=== PATIENT | male | born 1980 | race Two or more races ===

== ENCOUNTER 2019-04-25 12:51 | Emergency (ER) | payer SELFPAY ==
[2019-04-25] MEDS ORDERED: Ketorolac *IM* INJ* 60 MG/2 ML VIAL IM ONE (14:21)
--- NOTE | 2019-04-25 14:27 | ED ---
Complex/Multi-Sys Presentation - HPI Summary HPI Summary: This patient is a 38 year old M presenting to [facility] accompanied by a female fly frame tender with a chief complaint of tooth pain since last night. Pt states he lost his tooth filling 2 nights ago. He took extra strength Tylenol with no relief. He last saw a dentist 4 years ago in [place]. The patient rates the pain 10/10 in severity. Symptoms aggravated by nothing. Symptoms alleviated by nothing. Patient reports ear pain. Patient denies fever, chills, nausea, vomiting. Medications reviewed. Allergies noted. Pt does not have any medical history or previous surgeries. Pt smokes and drinks alcohol, but does not use drugs. - History Of Current Complaint Chief Complaint: EDDentalPain Time Seen by Provider: 04/25/19 14:02 Hx Obtained From: Patient, Other: - female fly frame tender Onset/Duration: Sudden Onset, Lasting Days - 1, Still Present Timing: Constant, Days - 1 Severity Currently: Severe Severity Initially: Severe Aggravating Factor(s): nothing Alleviating Factor(s): nothing Associated Signs And Symptoms: Positive: Other - positive - tooth pain, ear pain. negative - chills. Negative: Nausea, Vomiting, Fever - Allergies/Home Medications Allergies/Adverse Reactions: Allergies Allergy/AdvReac Type Severity Reaction Status Date / Time No Known Allergies Allergy Verified 04/25/19 12:54 PMH/Surg Hx/FS Hx/Imm Hx Previously Healthy: No Cardiovascular History: Denies: Hx Hypertension Sensory History: Denies: Hx Cataracts, Hx Vision Problem, Hx Deafness EENT History: Denies: Hx Deafness, Hx Auditory Problems - Surgical History Surgical History: None Infectious Disease History: No Infectious Disease History: Denies: Traveled Outside the [place] in Last 30 Days - Family History Known Family History: Positive: None - Social History Alcohol Use: Daily Alcohol Amount: 2 beers Substance Use Type: Reports: None Smoking Status (MU): Heavy Every Day Tobacco Smoker Review of Systems Negative: Fever, Chills Negative: Vomiting, Nausea Musculoskeletal: Other - positive - tooth pain, ear pain All Other Systems Reviewed And Are Negative: Yes Physical Exam - Summary Physical Exam Summary: Constitutional: Well-developed, Well-nourished, Alert. (-) Distressed Skin: Warm, Dry HENT: Normocephalic; Atraumatic. Tooth 2 tender to palpation, no fluctuance, induraton, or swelling. Eyes: Conjunctiva normal Neck: Musculoskeletal ROM normal neck. (-) JVD, (-) Stridor, (-) Tracheal deviation Cardio: Rhythm regular, rate normal, Heart sounds normal; Intact distal pulses; The pedal pulses are 2+ and symmetric. Radial pulses are 2+ and symmetric. (-) Murmur Pulmonary/Chest wall: Effort normal. (-) Respiratory distress, (-) Wheezes, (-) Rales Abd: Soft, (-) tenderness, (-) Distension, (-) Guarding, (-) Rebound Musculoskeletal: (-) Edema Lymph: (-) Cervical adenopathy Neuro: Alert, Oriented x3 Psych: Mood and affect Normal Triage Information Reviewed: Yes Vital Signs On Initial Exam: Initial Vitals Temp Pulse Resp BP Pulse Ox 97.4 F 90 16 167/96 99 04/25/19 12:52 04/25/19 12:52 04/25/19 12:52 04/25/19 12:52 04/25/19 12:52 Vital Signs Reviewed: Yes Diagnostics - Vital Signs Vital Signs Temp Pulse Resp BP Pulse Ox 04/25/19 12:52 97.4 F 90 16 167/96 99 - Laboratory Lab Statement: Any lab studies that have been ordered have been reviewed, and results considered in the medical decision making process. Complex Multi-Symp Course/Dx Course Of Treatment: Patient is here with pain at tooth #2 after one of his fillings came out. Patient has no drainable abscess but does have some tenderness with tooth percussion. Patient was treated with a shot of Toradol, given a prescription for clindamycin and Tylenol No. 3. Patient was encouraged to find a dentist to follow-up with. - Diagnoses Provider Diagnoses: Dental infection, Pain, dental Discharge ED - Sign-Out/Discharge Documenting (check all that apply): Patient Departure - discharge Patient Received Moderate/Deep Sedation with Procedure: No - Discharge Plan Condition: Stable Disposition: HOME Prescriptions: Acetaminophen with Codeine [Acetaminophen-Cod #3 Tablet] 1 each PO Q8HR PRN #12 tablet MDD 3 tablets PRN Reason: Pain - Severe Clindamycin Cap(NF) [Clindamycin Cap 300 mg Cap(NF)] 300 mg PO Q6H 7 Days #28 cap Referrals: Stevanovic,Radomir D, MD [Primary Care Provider] - 2 Days Additional Instructions: Come back to the ED if your face swells, if you develop a fever, or if you have difficulty swallowing. Follow up with a dentist within the next week. Follow up with your primary care provider within 1-3 days. - Billing Disposition and Condition Condition: STABLE Disposition: Home - Attestation Statements Document Initiated by Adeola: Yes Documenting Scribe: Vince Marquez Provider For Whom Adeola is Documenting (Include Credential): Dr. Suraj Mclain MD Scribe Attestation: Vince Barry, scribed for Dr. uSraj Mclain MD on 04/25/19 at 1903. Scribe Documentation Reviewed: Yes Provider Attestation: The documentation as recorded by the Vince jaquez accurately reflects the service I personally performed and the decisions made by me, Dr. Suraj Mclain MD Status of Scribe Document: Viewed
[2019-04-25 14:33] VITALS: BP 0/0
== END 2019-04-25 14:30 | disposition home or self-care (01) ==
LOC: ED 12:51
DX: K04.7 Periapical abscess without sinus (principal); F17.200 Nicotine dependence, unspecified, uncomplicated
CPT/HCPCS: 96372; 99282; J1885